=== PATIENT | male | born 1965 | race Caucasian/White ===

== ENCOUNTER 2016-05-31 18:25 | Emergency (ER) ==
[2016-05-31 18:29] VITALS: BP 110/70
--- NOTE | 2016-05-31 18:53 | PROVIDER DOCUMENTATION ---
HPI-Psychological Disorder - General Chief Complaint: Psych Stated Complaint: psych Time Seen by Provider: 05/31/16 18:39 Source: patient Allergies/Adverse Reactions: Patient Allergies Allergy/AdvReac Type Severity Reaction Status Date / Time Penicillins AdvReac Unknown Verified 05/31/16 18:30 Home Medications: Clonazepam [Klonopin] 1 mg PO DAILY 05/31/16 Lisinopril 20 mg PO DAILY 05/31/16 - History of Present Illness-Psych Nature of Presenting Problem: 50 y/o WM presents to the ED stating " I dont want to do this no more". Pt goes on to states he found out that his has been cheating on him for the last 3 months. He has been treated for depression before and for chronic back pain. Pt again states he does not want to do this anymore but has no plan. Onset/Duration: reports: unsure Timing: reports: still present Situational problems related to:: reports: spouse Psychiatric Complaints: reports: angry, depressed Substance Use: reports: none/never Previous psych related hospitalizations?: No Patient arrived by:: private car Similar Symptoms Previously?: No Recently seen or treated by another doctor?: Yes Review of Systems - Adult - REVIEW OF SYSTEMS - ADULT Constitutional: denies: chills, fever Eyes: reports: no symptoms reported Ears, Nose, Mouth & Throat: reports: no symptoms reported Cardiovascular: denies: chest pain, edema Respiratory: denies: cough, shortness of breath, wheezing Gastrointestinal: reports: no symptoms reported Genitourinary: reports: no symptoms reported Musculoskeletal: reports: no symptoms reported Integumentary: reports: no symptoms reported Neurological: reports: no symptoms reported Psychiatric: reports: depression, suicidal thoughts. denies: anti-depressant use, alcohol/drug dependence, panic attacks Endocrine: reports: no symptoms reported Hematologic/Lymphatic: reports: no symptoms reported Allergic/Immunologic: reports: no symptoms reported All Other Systems: Reviewed and Negative Past History - Adult - PAST MEDICAL HISTORY-ADULT Review of Records: reports: Old Records Reviewed, Nursing Assessment Review, Medications Reviewed Physical Exam-Psych Focus - Physical Exam-Psych Initial Vital Signs Reviewed: Yes Appearance: appropriate appearance, appropriate insight, neat Neurological: alert, normal mood/affect, calm, oriented x 3 Behavior/Eye Contact/Speech: cooperative, good eye contact, normal speech Thoughts/Hallucinations: normal thought pattern, no apparent hallucination Neck: non-tender, full range of motion, supple, normal inspection Respiratory: no respiratory distress, no accessory muscle use, crackles (left) Cardiovascular: normal peripheral pulses, regular rate, rhythm Abdominal Exam: normal bowel sounds, non tender, soft Back Exam: normal inspection, no CVA tenderness, vertebral tenderness Extremity: normal range of motion, non-tender, normal gait, normal inspection Integumentary: normal color, normal turgor, warm/dry Progress - EKG 1 Time of EKG reading by physician:: 18:46 EKG Read and Signed by:: Calos Clark EKG Interpretation (*Must complete 3 of following elements*): Abnormal Rate: 84 Rhythm: NSR [place]: right Comments: abnormal ECG Departure - Departure Time of Disposition Order: 21:24 DIAGNOSIS: Depressed Qualifiers: Depression Type: unspecified Qualified Code(s): F32.9 - Major depressive disorder, single episode, unspecified Disposition: AGAINST MEDICAL ADVICE 07 Certified Medical Emergency: Emergent Condition: Stable Attestation - Scribe Verification/Attestation Scribe:: Leobardo Cartagena Acting as Scribe for:: Calos Clark Scribe documention review:: This chart was documented by a scribe and accurately reflects the service the provider performed and the decisions made by the provider.
[2016-05-31 19:01] LABS: URINE SOURCE VOIDED
[2016-05-31 19:16] LABS: BILIRUBIN URINE NEGATIVE (NEGATIVE); BLOOD URINE TRACE (NEGATIVE); CLARITY CLEAR (CLEAR); COLOR YELLOW; GLUCOSE URINE NEGATIVE (NEGATIVE); LEUKOCYTES URINE 2+ (NEGATIVE); NITRITE URINE NEGATIVE (NEGATIVE); PH URINE 6.5; PROTEIN URINE NEGATIVE (NEGATIVE); SP GRAVITY URINE 1.005; UROBILINOGEN URINE NORMAL
[2016-05-31 19:31] LABS: MANUAL DIFF NEEDED? NO
[2016-05-31 19:34] LABS: URINE CULTURE PL NEEDED? YES; URINE EPITHELIAL CELLS <10 /HPF (<10); URINE RBC <10 /HPF (<10); URINE WBC <10 /HPF (<10)
[2016-05-31 19:59] LABS: AGAP 9; ALBUMIN 4.1 g/dL (3.5-5.0); ALKALINE PHOSPHATASE 69 U/L (32-122); BUN 4 mg/dL (8-22); CALCIUM 9.4 mg/dL (8.8-10.2); CHLORIDE 100 mmol/L (98-107); COSMO 268; GOT 11 U/L (10-34); GPT 9 U/L (10-44); POTASSIUM 3.5 mmol/L (3.5-5.1); SODIUM 135 mmol/L (136-145); TCO2 26 mmol/L (25-35)
[2016-05-31 20:01] LABS: ACETAMINOPHEN < 1.2 ug/mL (10-30); MAGNESIUM 1.9 mg/dL (1.5-2.7)
[2016-05-31 20:09] LABS: BASO% 0.2 % (0.0-0.8); EOS# 0.22 X1000 (0.0-0.7); EOS% 2.2 % (0.0-10.0); HEMATOCRIT 50.5 % (42.0-52.0); HEMOGLOBIN 17.5 g/dL (14.0-18.0); IMM GRAN# 0.02 X1000 (0.0-0.04); IMM GRAN% 0.2 % (0.0-0.5); LYMPH# 2.64 X1000 (1.2-3.4); MCH 28.6 PG (27-31); MCHC 34.7 g/dL (33-37); MCV 82.7 FL (81-99); MONO# 0.82 X1000 (0.11-0.59); MONO% 8.1 % (1.7-9.3); NEUT% 63.3 % (42.2-75.2); PLT 157 X1000 (130-400); RBC 6.11 XMIL (4.7-6.1)
[2016-05-31 21:24] LABS: UR AMPHETAMINES QUAL NONE DETECTED (NONE DETECT); UR BARBITUATES QUAL NONE DETECTED (NONE DETECT); UR BENZODIAZEPIN QUAL PRESUMPTIVE POSITIVE (NONE DETECT); UR CANNABINOIDS QUAL PRESUMPTIVE POSITIVE (NONE DETECT); UR COCAINE QUAL NONE DETECTED (NONE DETECT); UR MDMA QUAL NONE DETECTED (NONE DETECT); UR METHADONE QUAL NONE DETECTED (NONE DETECT); UR METHAMPHETAMINE QUAL NONE DETECTED (NONE DETECT); UR OPIATES QUAL NONE DETECTED (NONE DETECT); UR OXYCODONE QUAL NONE DETECTED (NONE DETECT); UR PCP QUAL NONE DETECTED (NONE DETECT); UR TCA QUAL NONE DETECTED (NONE DETECT)
--- NOTE | 2016-06-01 05:24 | EKG Report ---
Test Performed on : 05/31/2016 6:46:40 PM Test Reason : PSYCH CLEARANCE Blood Pressure : / mmHG Vent. Rate : 064 BPM Atrial Rate : 064 BPM P-R Int : 182 ms QRS Dur : 108 ms QT Int : 408 ms P-R-T Axes : 037 120 042 degrees QTc Int : 420 ms Normal sinus rhythm. Right axis deviation Abnormal ECG No previous ECGs available Unconfirmed Result
== END 2016-05-31 20:00 | disposition left against medical advice (07) ==
LOC: P.ED 18:25
DX: F32.9 Major depressive disorder, single episode, unspecified (principal); R94.31 Abnormal electrocardiogram [ECG] [EKG]; Z79.899 Other long term (current) drug therapy
CPT/HCPCS: 80053; 81001; 82607; 83735; 85025; 87088; 93005; 99283; G0480